=== PATIENT | female | born 1970 | race Caucasian/White ===

== ENCOUNTER 2016-10-31 15:33 | Emergency (ER) | payer OTHER ==
--- NOTE | ~2016-10-31 | CT4 ---
[facility] A Service of [facility] & [facility] / [facility] RADIOLOGY TEXT RESULTS PATIENT: KIMI DEVINE LOCATION: SED : 70 UNIT #: [id number] AGE: [address]: Pa Cardenas MD SEX: F ORDER DR: [id number] [address] [address] [id number] E MR#: [id number] Acc #: [id number] NAME: KIMI DEVINE : 1970 SEX: F STUDY DATE/TIME: 10/31/2016 16:42 UNIT: SED ROOM: STUDY DESCRIPTION: CT Abd and Pelv Wo Cont Attending Physician: Pa Cardenas M.D. Ordering Physician: Pa Cardenas M.D. Primary Care Physician: No Primary Care Physician MEDICAL IMAGING REPORT This report is preliminary unless electronic signature is present. EXAM CT abdomen and pelvis, noncontrast, kidney stone protocol, 10/31/2016 HISTORY 46-year-old female in the ED complaining of left flank pain beginning yesterday. TECHNIQUE CT examination of the abdomen and pelvis was performed without oral or IV contrast using kidney stone protocol. This CT exam was performed with one or more of the following radiation dose reduction techniques: automatic control, adjustment of mA and/or kV according to patient size, and iterative reconstruction. FINDINGS ABDOMEN FINDINGS: There is mild dilatation of the left renal collecting system and left ureter, and soft tissue stranding surrounds the left kidney. There is a 5 mm calculus within the mid portion of the urinary bladder. The findings likely represent recent passage of left ureteral calculus. No additional stone material is seen within the kidneys or ureters. Cholecystectomy. No bile duct dilatation. Liver, pancreas and spleen are negative. Mild sigmoid and descending colonic diverticulosis. Small bowel and colon are otherwise normal in caliber and appearance, as imaged. Normal appendix. Normal-caliber abdominal aorta. PELVIS FINDINGS: Uterus, ovaries and rectum are within normal limits. No inguinal hernia. Bladder findings as above. IMPRESSION 1. 5 mm calculus within the urinary bladder likely representing a recently passed left ureteral calculus. There is mild residual STS. [facility] A Service of [facility] & [facility] / [facility] RADIOLOGY TEXT RESULTS PATIENT: KIMI DEVINE LOCATION: SED : 70 UNIT #: [id number] AGE: [address]: Pa Cardenas MD SEX: F ORDER DR: dilatation of the left upper ureter and left renal collecting system, there is mild soft tissue stranding surrounding left kidney. No additional renal or urinary stone material is seen. 2. Cholecystectomy. 3. Mild colonic diverticulosis. Normal appendix. 1. Dictated by... Adalid Soler M.D. THIS IS AN ELECTRONICALLY VERIFIED REPORT Adalid Soler M.D. at 11/01/2016 12:52 PM SAGE/yuliana TD: 11/01/2016 03:37 JOB #: [id number] MEDICAL IMAGING REPORT Page 1 of 1
[~2016-10-31 15:33] MED LIST: ACETAMINOPHEN; NAPROSYN-EC500 MG PO; NAPROSYN500 MG PO; NAPROXEN PO; PREVPAC PA1 COMB.PKG PO
[2016-10-31] MEDS ORDERED: HCTZ (15:45)
[2016-10-31] MEDS ORDERED: TOPROL XL (15:45)
[2016-10-31 16:32] LABS: URINE SOURCE CLEAN CATCH
[2016-10-31 16:36] LABS: BASOPHIL% 0.4 % (0-2.5); EOSINOPHIL# 0.2 X10e3 (0-0.7); EOSINOPHIL% 1.9 % (0.0-7.0); HEMATOCRIT 36.6 % (35.0-45.0); LYMPHOCYTE# 2.4 X10e3 (1.0-3.5); LYMPHOCYTE% 21.4 % (17.0-45.0); MEAN CELL VOLUME 83.9 FL (83-96); MEAN CORPUSCULAR HEMOGLOBIN 27.5 PG (28-34); MEAN CORPUSCULAR HGB CONC 32.8 g/dL (30-36); MEAN PLATELET VOLUME 9.2 FL (6.5-11.5); MONOCYTE# 0.7 X10e3 (0-1.0); MONOCYTE% 5.9 % (3.0-12.0); NEUTROPHIL# 7.9 X10e3 (1.5-7.1); NEUTROPHIL% 70.4 % (40-75); PLATELET COUNT 204 X10e3 (140-420); RED BLOOD COUNT 4.36 X10e (3.90-5.30); RED CELL DISTRIBUTION WIDTH 14.2 % (11.0-15.5); WHITE BLOOD COUNT 11.2 X10e3 (4.0-10.5)
[2016-10-31 16:37] LABS: URINE APPEARANCE SL CLOUDY; URINE BLOOD 3+ (NEG); URINE COLOR YELLOW; URINE GLUCOSE NEG (NORM); URINE KETONE TRACE (NEG); URINE LEUKOCYTE ESTERASE 1+ (NEG); URINE NITRATE NEG (NEG); URINE PROTEIN TRACE (NEG); URINE SPECIFIC GRAVITY >=1.030 (1.003-1.035); URINE UROBILINOGEN 0.2 MG/DL (NORM)
[2016-10-31 16:41] LABS: DIFF IND NO
[2016-10-31 16:50] LABS: URINE BILIRUBIN NEG (NEG)
[2016-10-31 16:51] LABS: CULTURE INDICATED? YES; MICRO INDICATED? YES; URINE BACTERIA 1+ (NEG); URINE SQUAMOUS EPITHELIAL CELL MODERATE /[HPF]
[2016-10-31 16:54] LABS: ALBUMIN SERUM 3.8 g/dL (3.5-5.0); BILIRUBIN, DIRECT 0.1 mg/dL (0.0-0.2); BILIRUBIN,INDIRECT 0.5 mg/dL (0.0-0.9); BILIRUBIN,TOTAL 0.6 mg/dL (0.2-2.0); CALCIUM SERUM 8.5 mg/dL (8.4-10.2); GLOM FILT RATE Estimated 67.5 mL/min (>60); POTASSIUM 3.5 mmol/L (3.5-5.1); PROTEIN TOTAL SERUM 6.8 g/dL (6.0-8.3)
== END 2016-10-31 18:44 | disposition home or self-care (01) ==
LOC: SED 15:33
PROVIDERS: Emergency Medicine
DX: N20.1 Calculus of ureter (principal); N30.91 Cystitis, unspecified with hematuria; I10 Essential (primary) hypertension; Z04.9 Encounter for examination and observation for unspecified reason; Z91.040 Latex allergy status
CPT/HCPCS: 36415; 74176; 80048; 80076; 81003; 83690; 84703; 85025; 87086; 96374; 96375; 99284; J0696; J1885; J2405